=== PATIENT | female | born 1975 | race Hispanic/Latino ===

== ENCOUNTER 2016-10-25 12:54 | Outpatient (CLI) | payer BC ==
--- NOTE | 2016-10-25 14:08 | Ultrasound Report ---
Bilateral mammogram and bilateral breast ultrasound: The patient presents with her physician feeling lumps in the upper lateral portions of each breast. The patient does not feel these lumps but we put markers in the areas described by the patient where her physician indicated feeling lumps. Routine views as well as exaggerated CC images of the lateral breast are performed and compared to prior study in February 2016. This patient has a dense breast pattern is symmetric distribution. There is no focal mass nor architectural change identified and no interval change noted compared to prior study. Bilateral ultrasound was performed in the areas of concern. There are no echogenic abnormalities identified. CAD used. Impression: Stable breast pattern with no suspicious findings. Negative targeted bilateral breast ultrasound. Recommendation: Clinical followup. Annual mammogram. Any additional evaluation at this time should be based on your concern. BI-RADS CATEGORY: 1 = Negative ACR BI-RADS MAMMOGRAPHIC CODES: 0 = Needs additional imaging evaluation; 1 = Negative; 2 = Benign; 3 = Probably benign; 4 = Suspicious; 5 = Malignant; 6 = Known biopsy-proven malignancy COMMENT: 1. Dense breast tissue, i.e., adenosis, fibrocystic changes, etc., may obscure an underlying neoplasm. 2. Approximately 10% of cancers are not detected with mammography. 3. A negative mammography report should not delay biopsy if a clinically suspicious mass is present.
== END 2016-10-25 12:55 | disposition home or self-care (01) ==
LOC: SPVWC 12:54
PROVIDERS: ATTEND Obstetrics & Gynecology
DX: N63 Unspecified lump in breast (principal)
CPT/HCPCS: 76642; G0204; 77066

== ENCOUNTER 2017-12-03 08:40 | Outpatient (CLI) | payer BC ==
--- NOTE | 2017-12-03 09:51 | Mammography Report ---
BILATERAL DIGITAL SCREENING MAMMOGRAM with CAD: 12/03/17 08:40:00 CLINICAL: Routine screening. COMPARISON:10/25/16 and 03/08/16 FINDINGS: The breasts are heterogeneously dense, which may obscure small masses. No mass, architectural distortion or suspicious calcifications. IMPRESSION: No mammographic evidence of malignancy. BI-RADS CATEGORY: 1 - - Negative RECOMMENDATION: Routine mammographic screening in one year. COMMENT: Patient follow-up letters are generated by our [employer] application.
== END 2017-12-03 08:41 | disposition home or self-care (01) ==
LOC: SPVWC 08:40
PROVIDERS: ATTEND Surgery
DX: Z12.31 Encounter for screening mammogram for malignant neoplasm of breast (principal)
CPT/HCPCS: 77067

== ENCOUNTER 2018-12-16 09:06 | Outpatient (CLI) | payer BC ==
--- NOTE | 2018-12-16 09:57 | Mammography Report ---
DIGITAL SCREENING MAMMOGRAM WITH CAD, 12/16/2018 INDICATION: Routine screening mammography. TECHNIQUE: Digital bilateral 2D mammography was obtained in the craniocaudal and mediolateral obliq ue projections. This examination was interpreted with the benefit of Computer-Aided Detection analysi s. COMPARISON: 12/03/2017 and 10/25/2016 FINDINGS: Breast Density: The breasts are heterogeneously dense, which may obscure small masses. A right upper asymmetry and architectural distortion on the MLO view requires additional imaging. No suspicious calcifications. There is no evidence of dominant mass, suspicious calcifications or tim ectural distortion in the left breast. IMPRESSION: Right asymmetry requiring additional imaging. Recommend recall for right lateral and spot magnification MLO views and right breast ultrasound if needed. Follow up recommendation: Special View: Spot Category 0: Incomplete. Needs additional imaging evaluation and/or prior mammograms for comparison. A "normal" or negative report should not discourage follow up or biopsy of a clinically significant f inding. A written summary of these findings will be mailed to the patient. The patient will be entered into a mammography reporting system which will generate a reminder letter for the patient's next appointmen t at the appropriate interval. The [employer] recommends yearly mammograms starting at age 40 and continuing as l carson as a woman is in good health. Breast MRI is recommended for women with an approximate 20-25% or greater lifetime risk of breast cancer, including women with a strong family history of breast or ova ganesh cancer or who have been treated for Hodgkin's disease. Signer Name: Erick Castelan MD Signed: 12/16/2018 9:53 AM Workstation Name: [id number]
--- NOTE | 2018-12-16 12:23 | Mammography Report ---
DIGITAL DIAGNOSTIC MAMMOGRAM WITH CAD, -- 12/16/2018 INDICATION: Asymmetry on screening mammogram. TECHNIQUE: Digital right mammographic imaging was performed. This examination was interpreted with the benefit of Computer-aided Detection analysis. COMPARISON: Same day screening mammogram FINDINGS: Breast Density: The breast is heterogeneously dense, which may obscure small masses. Right lateral and spot compression MLO views were performed and are negative. IMPRESSION: No mammographic evidence of malignancy. Follow up recommendation: Routine yearly BI-RADS Category 1: Negative. A "normal" or negative report should not discourage follow up or biopsy of a clinically significant f inding. A written summary of these findings will be mailed to the patient. The patient will be entered into a mammography reporting system which will generate a reminder letter for the patient's next appointmen t at the appropriate interval. According to the [employer], yearly mammograms are recommended starting at age 40 and continuing as long as a woman is in good health. Breast MRI is recommended for women with an mike roximately 20-25% or greater lifetime risk of breast cancer, including women with a strong family his tory of breast or ovarian cancer and women who have been treated for Hodgkin's disease. Signer Name: Erick Castelan MD Signed: 12/16/2018 12:19 PM Workstation Name: [id number]
== END 2018-12-16 09:07 | disposition home or self-care (01) ==
LOC: SPVWC 09:06
PROVIDERS: ATTEND Surgery
DX: Z12.31 Encounter for screening mammogram for malignant neoplasm of breast (principal); R92.8 Other abnormal and inconclusive findings on diagnostic imaging of breast
CPT/HCPCS: 77067

== ENCOUNTER 2019-12-22 08:37 | Outpatient (CLI) | payer BC ==
--- NOTE | 2019-12-22 09:29 | Mammography Report ---
DIGITAL SCREENING MAMMOGRAM WITH CAD, 12/22/2019 INDICATION: Routine screening mammography. SCREENING MAMMO TECHNIQUE: Digital bilateral 2D mammography was obtained in the craniocaudal and mediolateral obliq ue projections. This examination was interpreted with the benefit of Computer-Aided Detection analysi s. COMPARISON: 10/25/2016 through 12/16/2018. FINDINGS: Breast Density: The breasts are heterogeneously dense, which may obscure small masses. There is no evidence of dominant mass, suspicious calcifications or architectural distortion in eithe r breast. IMPRESSION: No mammographic evidence of malignancy or significant change. Follow up recommendation: Routine yearly BI-RADS Category 1: Negative. A "normal" or negative report should not discourage follow up or biopsy of a clinically significant f inding. A written summary of these findings will be mailed to the patient. The patient will be entered into a mammography reporting system which will generate a reminder letter for the patient's next appointmen t at the appropriate interval. The [employer] recommends yearly mammograms starting at age 40 and continuing as l carson as a woman is in good health. Breast MRI is recommended for women with an approximate 20-25% or greater lifetime risk of breast cancer, including women with a strong family history of breast or ova ganesh cancer or who have been treated for Hodgkin's disease. Signer Name: Fransisco Tello MD Signed: 12/22/2019 9:24 AM Workstation Name: [email or web address]
== END 2019-12-22 08:38 | disposition home or self-care (01) ==
LOC: SPVWC 08:37
PROVIDERS: ATTEND Surgery
DX: Z12.31 Encounter for screening mammogram for malignant neoplasm of breast (principal)
CPT/HCPCS: 77067

== ENCOUNTER 2020-11-09 08:30 | Outpatient (CLI) | payer BC ==
--- NOTE | 2020-11-09 10:23 | Mammography Report ---
DIGITAL DIAGNOSTIC MAMMOGRAM WITH CAD WITH TOMOSYNTHESIS, 11/09/2020 CLINICAL INFORMATION / INDICATION: Diffuse lumpiness FIBROSCLEROSIS BILATERAL BREASTS N60.32 AND N60. 31 TECHNIQUE: Digital bilateral mammographic imaging was performed. This examination was interpreted with the benefit of Computer-aided Detection analysis. COMPARISON: December 22, 2019, December 16, 2018 and March 08, 2016 FINDINGS: Breast Density: The breasts are extremely dense, which lowers the sensitivity of mammography. No dominant mass, suspicious calcifications or architectural distortion in either breast. IMPRESSION: No mammographic evidence of malignancy. Follow up recommendation: Routine yearly BI-RADS Category 1: Negative. A "normal" or negative report should not discourage follow up or biopsy of a clinically significant f inding. A written summary of these findings will be mailed to the patient. The patient will be entered into a mammography reporting system which will generate a reminder letter for the patient's next appointmen t at the appropriate interval. According to the [employer], yearly mammograms are recommended starting at age 40 and continuing as long as a woman is in good health. Breast MRI is recommended for women with an mike roximately 20-25% or greater lifetime risk of breast cancer, including women with a strong family his tory of breast or ovarian cancer and women who have been treated for Hodgkin's disease. Signer Name: Ernesto Rockwell DO Signed: 11/09/2020 10:19 AM Workstation Name: [id number]
== END 2020-11-09 08:31 | disposition home or self-care (01) ==
LOC: SPVWC 08:30
PROVIDERS: ATTEND Surgery
DX: N60.32 Fibrosclerosis of left breast (principal); N60.31 Fibrosclerosis of right breast
CPT/HCPCS: 77066; G0279